=== PATIENT | female | born 1980 | race Caucasian/White ===

== ENCOUNTER 2018-09-28 23:21 | Emergency (ER) | payer OTHER | END 2018-09-29 13:48 | disposition home or self-care (01) | LOC: JER 23:21 ==

== ENCOUNTER 2018-09-29 16:02 | Inpatient (IN) | payer OTHER ==
--- NOTE | 2018-09-29 20:00 | HP ---
CIWA Score Nausea/Vomitin (vomit x 1 4pm) Muscle Tremors: 3 Anxiety: 2 Agitation: 0-Normal Activity Paroxysmal Sweats: 2 Orientation: 0-Oriented Tacttile Disturbances: 0-None Auditory Disturbances: 0-None Visual Disturbances: 2-Mild Sensitivity Headache: 5-Severe (9/10) CIWA-Ar Total Score: 16 - Admission Criteria OASAS Guidelines: Admission for Medically Managed Detox: Requires at least one of the followin. CIWA greater than 12 2. Seizures within the past 24 hours 3. Delirium tremens within the past 24 hours 4. Hallucinations within the past 24 hours 5. Acute intervention needed for co occurring medical disorder 6. Acute intervention needed for co occurring psychiatric disorder 7. Severe withdrawal that cannot be handled at a lower level of care (continued vomiting, continued diarrhea, abnormal vital signs) requiring intravenous medication and/or fluids 8. Admission ROS [facility] Chief Complaint: " alcohol withdrawal symptoms" Allergies/Adverse Reactions: Allergies Allergy/AdvReac Type Severity Reaction Status Date / Time cefaclor [From Ceclor] Allergy Verified 09/28/18 22:05 sertraline [From Zoloft] Allergy Verified 09/28/18 22:05 venlafaxine [From Effexor] Allergy Verified 09/28/18 22:05 History of Present Illness: Patient is a 38 yo female with hx of alcohol dependence is here seeking alcohol detox d/t withdrawal sx. Patient return from [facility] after evaluation for abdominal pain, s/p unwitnessed fall and alcohol intoxication. CT Scan and Spine CT and CT of abdomen and pelvis performed at [facility] Negative. Patient c/o of alcohol withdrawal symptoms, feeling shaky, vomiting and headache. Reports admitted to [facility] for eight days and discharged 09/28/18 for increased depression. Reports after she was released from [facility] psych hernandez went on a drinking binge before arriving at [facility] 09/28/18. Reports hx of alcohol blackouts, hx of alcohol seizures, last episode June 2018. PMHX: migraines, Hep C, HSV. Psych: Depression, PTSD, bipolar and borderline personality. PTSD and anxiety. Denies suicidal / homicidal ideation. Reports hx of suicide attempt x 4, last episode June 2018. Longest period of sobriety only during her three pregnancies. Exam Limitations: No Limitations - Ebola screening Have you traveled outside of the country in the last 21 days: No Have you had contact with anyone from an Ebola affected area: No - Review of Systems Constitutional: Chills, Loss of Appetite, Changes in sleep, Other (clamy hands, shaky) EENT: reports: Other (light sensitivity) Respiratory: reports: No Symptoms reported Cardiac: reports: Palpitations GI: reports: Nausea, Poor Appetite, Vomiting, Other (rectal bleed yesterday, improved today, reports at [facility] had Enlarged spleen) : reports: No Symptoms Reported Musculoskeletal: reports: Back Pain, Other (right hip pain d/t OA) Integumentary: reports: No Symptoms Reported Neuro: reports: See HPI, Headache Endocrine: reports: Increased Thirst Hematology: reports: No Symptoms Reported Psychiatric: reports: Orientated x3, Anxious Other Systems: Reviewed and Negative Patient History - Patient Medical History Hx Anemia: No Hx Asthma: No Hx Chronic Obstructive Pulmonary Disease (COPD): No Hx Cancer: No Hx Cardiac Disorders: No Hx Congestive Heart Failure: No Hx Hypertension: No Hx Hypercholesterolemia: No Hx Pacemaker: No HX Cerebrovascular Accident: No Hx Seizures: No (reports ETOH seizure with last episode June 2018) Hx Dementia: No Hx Diabetes: No Hx Gastrointestinal Disorders: No Hx Genitourinary Disorders: No Hx Sexually Transmitted Disorders: No Hx Renal Disease (ESRD): Yes (Kidney stone ) Hx Thyroid Disease: No Hx Human Immunodeficiency Virus (HIV): No Hx Hepatitis C: Yes Hx Depression: Yes Hx Suicide Attempt: Yes (reports hx of suicide attempt x 4, last episode June 2018) - Patient Surgical History Past Surgical History: Yes Other Surgical History: tubal Litigation, uterine ablation , bladder hammock, Left thumb fx, Right Anesthesia Reaction: No - PPD History Previous Implant?: No Documented Results: Positive w/o proof PPD to be Administered?: No - Reproductive History Patient is a Female of Child Bearing Age (11 -55 yrs old): Yes Last Menstrual Period: 07/01/18 Patient : No - Smoking Cessation Smoking history: Unknown if ever smoked Hx Chewing Tobacco Use: No Initiated information on smoking cessation: No - Substance & Tx. History Hx Alcohol Use: Yes Hx Substance Use: Yes Substance Use Type: Alcohol Hx Substance Use Treatment: Yes (Last Detox [facility] eight days ago ) - Substances abused Alcohol Substance route: Oral Frequency: Daily Amount used: 1/2 GALLON Age of first use: 12 Date of last use: 09/28/18 Family Disease History - Family Disease History Family Disease History: CA: Father (lung CA , melanoma ) Admission Physical Exam [facility] - Physical General Appearance: Yes: Appropriately Dressed, Mild Distress, Thin, Tremorous, Sweating, Anxious HEENTM: Yes: Hearing grossly Normal, Normal ENT Inspection, Normocephalic, JOSE J , Pharynx Normal, Tm's normal Respiratory: Yes: Chest Non-Tender, Lungs Clear, Normal Breath Sounds, No Respiratory Distress, No Accessory Muscle Use Neck: Yes: Within Normal Limits Breast: Yes: Breast Exam Deferred Cardiology: Yes: Regular Rhythm, Regular Rate Abdominal: Yes: Normal Bowel Sounds, Non Tender, Flat, Soft Genitourinary: Yes: Within Normal Limits Back: Yes: Normal Inspection Musculoskeletal: Yes: full range of Motion, Gait Steady, Pelvis Stable Extremities: Yes: Normal Capillary Refill, Normal Inspection, Normal Range of Motion Neurological: Yes: physician relations manager II-XII NML intact, Fully Oriented, Alert, Motor Strength 5/5, Depressed Affect Integumentary: Yes: Normal Color, Clammy Lymphatic: Yes: Within Normal Limits - Diagnostic (1) Alcohol dependence with withdrawal Current Visit: Yes Status: Acute Qualifiers: Complication of substance-induced condition: uncomplicated Qualified Code(s ): F10.230 - Alcohol dependence with withdrawal, uncomplicated (2) Migraine headache Current Visit: Yes Status: Acute (3) History of seizure Current Visit: Yes Status: Acute (4) Psychiatric disorder Current Visit: Yes Status: Acute Cleared for Admission [facility] - Detox or Rehab [facility] Level of Care: Medically Managed Detox Regimen/Protocol: Librium Breathalyzer - Breathalyzer Breathalyzer: 0 POC Urine test - Test device test lot number: [id number] Expiration date: 02/27/20 - Control test control: Yes - Result Urine Test Results: Negative - NO line present Urine Drug Screen - Test Device Lot number: [id number] Expiration date: 09/26/19 - Control Is test valid?: Yes - Results Drug screen NEGATIVE: No Urine drug screen results: THC-Marijuana, BZO-Benzodiazepines Inpatient Rehab Admission - Rehab Decision to Admit Inpatient rehab admission?: No
[2018-09-29] MEDS ORDERED: MELATONIN 5 MG TABLETS PO PRN (21:09)
[2018-09-29] MEDS ORDERED: MENTHOL/PHENOL 1 EACH UD MM PRN (21:09)
[2018-09-29] MEDS ORDERED: MAGNESIUM CITRATE 300 ML BOTTLE PO PRN (21:09)
[2018-09-29] MEDS ORDERED: MAGNESIUM HYDROX 2400MG/30ML ORAL SUSPENSION 30 ML CUP PO PRN (21:09)
[2018-09-29] MEDS ORDERED: BISMUTH SUBSALICYLATE 524 MG/30 ML UD PO PRN (21:09)
[2018-09-29] MEDS ORDERED: ACETAMINOPHEN 325 MG TABLET (FP) PO PRN (21:09)
[2018-09-29] MEDS ORDERED: MAG HYDROX/AL HYDROX/SIMETH 30 ML UNIT-DOSE CUP PO PRN (21:09)
[2018-09-29] MEDS ORDERED: chlordiazePOXIDE HCL 10 MG CAPSULE PO PRN (21:09)
[2018-09-29] MEDS: THIAMINE HCL 100 MG TABLET (FP) PO SCH (21:55)
[2018-09-29] MEDS: chlordiazePOXIDE HCL 25 MG CAPSULE PO SCH (21:55)
[2018-09-29] MEDS: ACYCLOVIR 400 MG TABLET PO SCH (21:56)
[2018-09-29] MEDS: ACETAMINOPHEN 325 MG TABLET (FP) PO PRN (21:58)
[2018-09-30] MEDS: DOXYCYCLINE HYCLATE 100 MG CAPSULE PO SCH ×3 (01:47→18:12)
[2018-09-30] MEDS: METHOCARBAMOL 500 MG TABLET PO PRN ×3 (03:09→22:22)
[2018-09-30] MEDS: hydrOXYzine PAMOATE 25 MG CAPSULE (FP) PO PRN ×2 (03:09→22:18)
[2018-09-30] MEDS: ACETAMINOPHEN 325 MG TABLET (FP) PO PRN (03:10)
[2018-09-30] MEDS: chlordiazePOXIDE HCL 25 MG CAPSULE PO SCH ×2 (05:48→13:27)
[2018-09-30] MEDS ORDERED: TOPIRAMATE 200 MG TABLET (FP) PO SCH (10:00)
[2018-09-30] MEDS: PRENATAL VITAMINS W/ FOLIC ACID TABLET (FP) PO SCH (10:13)
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
[2018-09-30] MEDS ORDERED: TOPIRAMATE 100 MG TABLET PO SCH (13:00)
[2018-09-30] MEDS: ACYCLOVIR 400 MG TABLET PO SCH ×2 (13:26→22:16)
--- NOTE | 2018-09-30 15:00 | PN ---
S CIWA - CIWA Score Nausea/Vomitin-No Nausea/No Vomiting Muscle Tremors: 3 Anxiety: 2 Agitation: 0-Normal Activity Paroxysmal Sweats: 3 Orientation: 0-Oriented Tacttile Disturbances: 2-Mild Itch/Numbness/Burn Auditory Disturbances: 0-None Visual Disturbances: 3-Moderate Sensitivity Headache: 3-Moderate CIWA-Ar Total Score: 16 B[facility] Progress Note (SOAP) Subjective: Tremors, H/A (Patient Reports History of Chronic Migraine H/A's), Diarrhea, Sweating. Objective: PATIENT A & O X 3, OBSERVED AMBULATING ON UNIT. IN NO ACUTE DISTRESS. 09/30/18 14:54 Vital Signs Temperature 98.3 F 09/30/18 14:17 Pulse Rate 61 09/30/18 14:17 Respiratory Rate 18 09/30/18 14:17 Blood Pressure 104/68 09/30/18 14:17 O2 Sat by Pulse Oximetry (%) ADMISSION LAB RESULTS NOTED. 09/30/18 15:02 Assessment: 09/30/18 14:58 WITHDRAWAL SYMPTOMS. Plan: CONTINUE DETOX. INCREASE DAILY PO FLUID INTAKE. REPEAT UA FOR ADMISSION ABNORMALITIES. DURING DAILY AM MEDICAL ROUNDS ASSESSMENT TODAY, PATIENT REPORTED THAT SHE TAKES TOPIRAMATE, 200 MG PO BID FOR PREVENTION OF CHRONIC MIGRAINE H/A'S. HOWEVER, VIEWING OF BOTTLE THAT PATIENT BROUGHT WITH HER AT TIME OF ADMISSION ASSESSMENT REVEALS THAT PATIENT IS CURRENTLY PRESCRIBED TOPIRAMATE, 50 MG PO BID FOR PREVENTION OF MIGRAINE H/A'S. ORDERED DOSAGE CHANGED ACCORDINGLY.
[2018-09-30] MEDS: GABAPENTIN 400 MG CAPSULE (FP) PO SCH ×2 (15:26→22:15)
[2018-09-30] MEDS: THIAMINE HCL 100 MG TABLET (FP) PO SCH (22:14)
[2018-09-30] MEDS: chlordiazePOXIDE 5 MG CAPSULE PO SCH (22:14)
[2018-09-30] MEDS: SERTRALINE HCL 25 MG TABLET (FP) PO SCH (22:15)
[2018-09-30] MEDS: TOPIRAMATE 25 MG TABLET (FP) PO SCH (22:15)
[2018-09-30] MEDS: lamoTRIgine 25 MG TABLET PO SCH (22:16)
[2018-09-30] MEDS: traZODone HCL 50 MG TABLET (FP) PO SCH (22:18)
[2018-10-01] MEDS: GABAPENTIN 400 MG CAPSULE (FP) PO SCH ×3 (05:45→22:31)
[2018-10-01] MEDS: chlordiazePOXIDE 5 MG CAPSULE PO SCH ×2 (05:45→14:10)
[2018-10-01] MEDS: ACETAMINOPHEN 325 MG TABLET (FP) PO PRN (05:47)
[2018-10-01] MEDS: DOXYCYCLINE HYCLATE 100 MG CAPSULE PO SCH ×2 (10:24→18:05)
[2018-10-01] MEDS: lamoTRIgine 25 MG TABLET PO SCH ×2 (10:24→22:31)
[2018-10-01] MEDS: PRENATAL VITAMINS W/ FOLIC ACID TABLET (FP) PO SCH (10:24)
[2018-10-01] MEDS: TOPIRAMATE 25 MG TABLET (FP) PO SCH ×2 (10:25→22:30)
[2018-10-01] MEDS: ACYCLOVIR 400 MG TABLET PO SCH ×2 (10:25→22:31)
[2018-10-01] MEDS: IBUPROFEN 400 MG TABLET (FP) PO PRN (10:28)
--- NOTE | 2018-10-01 13:43 | PN ---
S CIWA - CIWA Score Nausea/Vomitin-No Nausea/No Vomiting Muscle Tremors: None Anxiety: 1-Mildly Anxious Agitation: 0-Normal Activity Paroxysmal Sweats: 3 Orientation: 0-Oriented Tacttile Disturbances: 0-None Auditory Disturbances: 0-None Visual Disturbances: 3-Moderate Sensitivity Headache: 5-Severe CIWA-Ar Total Score: 12 S Progress Note (SOAP) Subjective: Chills, Sweating, Fatigue, H/A. Objective: PATIENT A & O X 3, OBSERVED AMBULATING ON UNIT. IN NO ACUTE DISTRESS. 10/01/18 13:42 Vital Signs Temperature 96.5 F L 10/01/18 09:19 Pulse Rate 67 10/01/18 09:19 Respiratory Rate 16 10/01/18 09:19 Blood Pressure 100/60 10/01/18 09:19 O2 Sat by Pulse Oximetry (%) Laboratory Tests 10/01/18 10/01/18 07:00 07:00 RPR Titer Nonreactive HIV 1&2 Antibody Screen Negative HIV P24 Antigen Negative ADMISSION LABS NOTED. Assessment: 10/01/18 13:43 WITHDRAWAL SYMPTOMS. UTI. Plan: CONTINUE DETOX. INCREASE DAILY PO FLUID INTAKE. RECEIVED TELEPHONE CALL FROM Lili JENKINS NP AT [facility]. PATIENT HAD BEEN EVALUATED THERE JUST PRIOR TO ADMISSION TO DETOX UNIT. MS. REPORTS THAT PATIENT HAD HAD URINE CULTURE DONE THERE AND THAT RESULT IS POSITIVE FOR STREPTOCOCCUS. PATIENT IS ALREADY PRESCRIBED DOXICYCLINE PO FOR TREATMENT OF AN "INFECTION OF HER FALLOPIAN TUBES." PER MS. JENKINS, URINE C + S INDICATES THAT STREPTOCOCCUS IS SENSITIVE TO MACROBID. AT RECOMMENDATION OF MS. JENKINS, MACROBID (MACRODANTIN IS FORM AVAILABLE FROM [facility]): 50MG PO Q6H ORDERED.
[2018-10-01] MEDS: NITROFURANTOIN MACROCRYSTAL 50 MG CAPSULE (FP) PO SCH (18:05)
[2018-10-01] MEDS ORDERED: chlordiazePOXIDE HCL 10 MG CAPSULE PO PRN (21:00)
[2018-10-01] MEDS: chlordiazePOXIDE HCL 10 MG CAPSULE PO SCH (22:31)
[2018-10-01] MEDS: traZODone HCL 50 MG TABLET (FP) PO SCH (22:31)
[2018-10-01] MEDS: THIAMINE HCL 100 MG TABLET (FP) PO SCH (22:32)
[2018-10-01] MEDS: SERTRALINE HCL 25 MG TABLET (FP) PO SCH (22:35)
[2018-10-01] MEDS: hydrOXYzine PAMOATE 25 MG CAPSULE (FP) PO PRN (22:35)
[2018-10-01] MEDS: METHOCARBAMOL 500 MG TABLET PO PRN (22:35)
[2018-10-02] MEDS: NITROFURANTOIN MACROCRYSTAL 50 MG CAPSULE (FP) PO SCH ×5 (01:15→23:32)
[2018-10-02] MEDS: GABAPENTIN 400 MG CAPSULE (FP) PO SCH ×3 (05:24→22:08)
[2018-10-02] MEDS: chlordiazePOXIDE HCL 10 MG CAPSULE PO SCH ×3 (05:24→22:12)
[2018-10-02] MEDS: PRENATAL VITAMINS W/ FOLIC ACID TABLET (FP) PO SCH (10:12)
[2018-10-02] MEDS: lamoTRIgine 25 MG TABLET PO SCH ×2 (10:12→22:08)
[2018-10-02] MEDS: ACYCLOVIR 400 MG TABLET PO SCH ×2 (10:13→22:06)
[2018-10-02] MEDS: DOXYCYCLINE HYCLATE 100 MG CAPSULE PO SCH ×2 (10:13→17:34)
[2018-10-02] MEDS: TOPIRAMATE 25 MG TABLET (FP) PO SCH ×2 (10:13→22:07)
[2018-10-02] MEDS: METHOCARBAMOL 500 MG TABLET PO PRN ×2 (17:37→23:37)
--- NOTE | 2018-10-02 17:58 | PN ---
BHS Progress Note (SOAP) Subjective: sweats shakes headache Objective: 10/02/18 17:57 A & O x 3 gait steady skin flushed Vital Signs Temperature 97.9 F 10/02/18 17:46 Pulse Rate 77 10/02/18 17:46 Respiratory Rate 18 10/02/18 17:46 Blood Pressure 100/67 10/02/18 17:46 O2 Sat by Pulse Oximetry (%) Assessment: 10/02/18 17:58 withdrawal sx Plan: continue detox for d/c in a.m
[2018-10-02] MEDS: SERTRALINE HCL 50 MG TABLET (FP) PO SCH (22:02)
[2018-10-02] MEDS: traZODone HCL 50 MG TABLET (FP) PO SCH (22:07)
[2018-10-02] MEDS: ACETAMINOPHEN 325 MG TABLET (FP) PO PRN (22:08)
[2018-10-02] MEDS: THIAMINE HCL 100 MG TABLET (FP) PO SCH (22:08)
[2018-10-02] MEDS: hydrOXYzine PAMOATE 25 MG CAPSULE (FP) PO PRN (22:09)
[2018-10-03] MEDS: GABAPENTIN 400 MG CAPSULE (FP) PO SCH ×3 (05:33→22:18)
[2018-10-03] MEDS: NITROFURANTOIN MACROCRYSTAL 50 MG CAPSULE (FP) PO SCH ×3 (05:33→17:49)
[2018-10-03] MEDS: ACYCLOVIR 400 MG TABLET PO SCH ×2 (10:05→22:18)
[2018-10-03] MEDS: PRENATAL VITAMINS W/ FOLIC ACID TABLET (FP) PO SCH (10:05)
[2018-10-03] MEDS: lamoTRIgine 25 MG TABLET PO SCH ×2 (10:06→22:18)
[2018-10-03] MEDS: TOPIRAMATE 25 MG TABLET (FP) PO SCH ×2 (10:06→22:17)
[2018-10-03] MEDS: DOXYCYCLINE HYCLATE 100 MG CAPSULE PO SCH ×2 (10:06→17:49)
--- NOTE | 2018-10-03 17:14 | PN ---
S Progress Note (SOAP) Subjective: Headache 8/10 due to migraine, chills. Patient stated she usually takes excedrin for her migraine. Patient requested to be discharge tomorrow because she wants inpatient rehab and no beds available today. Patient stated she lives in [place] and not able to leave today plus she is afraid of relapsing and would like rehab. Objective: 10/03/18 17:12 Last Vital Signs Temp Pulse Resp BP Pulse Ox 97.2 F L 77 18 122/68 10/03/18 15:52 10/03/18 15:52 10/03/18 15:52 10/03/18 15:52 Laboratory Tests 10/01/18 10/01/18 07:00 07:00 RPR Titer Nonreactive HIV 1&2 Antibody Screen Negative HIV P24 Antigen Negative Labs reviewed Assessment: 10/03/18 17:12 Withdrawal symptoms Plan: Continue detox Encouraged PO water hydration Discharge rescheduled for tomorrow, patient requesting inpatient rehab
[2018-10-03] MEDS: hydrOXYzine PAMOATE 25 MG CAPSULE (FP) PO PRN (17:48)
[2018-10-03] MEDS: ACETAMINOPHEN 325 MG TABLET (FP) PO PRN (17:50)
[2018-10-03] MEDS: SERTRALINE HCL 50 MG TABLET (FP) PO SCH (22:17)
[2018-10-03] MEDS: traZODone HCL 50 MG TABLET (FP) PO SCH (22:18)
[2018-10-03] MEDS: METHOCARBAMOL 500 MG TABLET PO PRN (22:18)
[2018-10-03] MEDS: THIAMINE HCL 100 MG TABLET (FP) PO SCH (22:18)
[2018-10-03] MEDS: IBUPROFEN 400 MG TABLET (FP) PO PRN (22:21)
[2018-10-04] MEDS: NITROFURANTOIN MACROCRYSTAL 50 MG CAPSULE (FP) PO SCH ×5 (00:11→23:41)
[2018-10-04] MEDS: GABAPENTIN 400 MG CAPSULE (FP) PO SCH ×3 (05:16→21:32)
--- NOTE | 2018-10-04 09:00 | DS ---
[facility] Detox Discharge Summary Admission Date: 09/29/18 Discharge Date: 10/04/18 - History Present History: Alcohol Dependence - Physical Exam Results Vital Signs: Vital Signs Temperature 97.9 F 10/04/18 06:00 Pulse Rate 82 10/04/18 06:00 Respiratory Rate 16 10/04/18 06:00 Blood Pressure 93/62 10/04/18 06:00 O2 Sat by Pulse Oximetry (%) - Treatment Hospital Course: Detox Protocol Followed, Detoxed Safely, Responded well, Discharged Condition Good, Rehab Referral Accepted - Medication Discharge Medications: Ambulatory Orders Acyclovir [Zovirax -] 400 mg PO BID 09/28/18 Gabapentin 400 mg PO TID 09/28/18 Lamotrigine [Lamictal] 400 mg PO DAILY 09/28/18 Topiramate [Topamax -] 400 mg PO DAILY 09/28/18 traZODone HCL [Trazodone HCl] 100 mg PO HS 09/28/18 Doxycycline Hyclate [Vibratab -] 100 mg PO BID #28 tablet 09/29/18 Lamotrigine [Lamictal] 25 mg PO BID 09/30/18 Sertraline HCl [Zoloft -] 75 mg PO HS 09/30/18 - Diagnosis (1) Alcohol dependence with withdrawal Current Visit: Yes Status: Chronic Qualifiers: Complication of substance-induced condition: uncomplicated Qualified Code(s ): F10.230 - Alcohol dependence with withdrawal, uncomplicated (2) History of seizure Current Visit: Yes Status: Acute (3) Migraine headache Current Visit: No Status: Resolved (4) Psychiatric disorder Current Visit: Yes Status: Acute (5) Bipolar II disorder Current Visit: Yes Status: Chronic (6) Alcohol dependence with intoxication Current Visit: No Status: Acute Qualifiers: Complication of substance-induced condition: uncomplicated Qualified Code(s ): F10.220 - Alcohol dependence with intoxication, uncomplicated (7) Urinary tract infection Current Visit: Yes Status: Acute Qualifiers: Indwelling urinary catheter type: unspecified (8) Vaginal discharge Current Visit: Yes Status: Acute - AMA Did Patient Leave Against Medical Advice: No (referred to inpatient rehab )
[2018-10-04] MEDS: ACYCLOVIR 400 MG TABLET PO SCH ×2 (10:32→21:32)
[2018-10-04] MEDS: TOPIRAMATE 25 MG TABLET (FP) PO SCH ×2 (10:32→21:32)
[2018-10-04] MEDS: PRENATAL VITAMINS W/ FOLIC ACID TABLET (FP) PO SCH (10:32)
[2018-10-04] MEDS: lamoTRIgine 25 MG TABLET PO SCH ×2 (10:32→21:31)
[2018-10-04] MEDS: DOXYCYCLINE HYCLATE 100 MG CAPSULE PO SCH (10:47)
[2018-10-04] MEDS ORDERED: DOXYCYCLINE HYCLATE 100 MG TABLET PO SCH (16:39)
[2018-10-04] MEDS: DOXYCYCLINE HYCLATE 100 MG TABLET PO SCH (17:06)
[2018-10-04] MEDS: traZODone HCL 50 MG TABLET (FP) PO SCH (21:31)
[2018-10-04] MEDS: METHOCARBAMOL 500 MG TABLET PO PRN (21:33)
[2018-10-04] MEDS: THIAMINE HCL 100 MG TABLET (FP) PO SCH (21:34)
[2018-10-04] MEDS: SERTRALINE HCL 50 MG TABLET (FP) PO SCH (21:34)
[2018-10-04] MEDS: hydrOXYzine PAMOATE 25 MG CAPSULE (FP) PO PRN (22:57)
[2018-10-05] MEDS: GABAPENTIN 400 MG CAPSULE (FP) PO SCH ×3 (06:03→21:47)
[2018-10-05] MEDS: NITROFURANTOIN MACROCRYSTAL 50 MG CAPSULE (FP) PO SCH ×4 (06:03→23:09)
[2018-10-05] MEDS: SERTRALINE HCL 50 MG TABLET (FP) PO SCH (09:40)
[2018-10-05] MEDS: DOXYCYCLINE HYCLATE 100 MG TABLET PO SCH ×2 (09:57→17:21)
[2018-10-05] MEDS: TOPIRAMATE 25 MG TABLET (FP) PO SCH ×2 (09:57→21:47)
[2018-10-05] MEDS: PRENATAL VITAMINS W/ FOLIC ACID TABLET (FP) PO SCH (09:58)
[2018-10-05] MEDS: ACYCLOVIR 400 MG TABLET PO SCH ×2 (09:58→21:48)
[2018-10-05] MEDS: lamoTRIgine 25 MG TABLET PO SCH ×2 (09:58→21:48)
[2018-10-05] MEDS: METHOCARBAMOL 500 MG TABLET PO PRN (16:26)
[2018-10-05] MEDS: THIAMINE HCL 100 MG TABLET (FP) PO SCH (21:46)
[2018-10-05] MEDS: traZODone HCL 50 MG TABLET (FP) PO SCH (21:47)
[2018-10-05] MEDS: hydrOXYzine PAMOATE 25 MG CAPSULE (FP) PO PRN (21:49)
[2018-10-05] MEDS ORDERED: METHOCARBAMOL 500 MG TABLET PO ONE (23:00)
[2018-10-06] MEDS: NITROFURANTOIN MACROCRYSTAL 50 MG CAPSULE (FP) PO SCH ×4 (06:07→23:13)
[2018-10-06] MEDS: ACETAMINOPHEN 325 MG TABLET (FP) PO PRN ×2 (06:07→16:41)
[2018-10-06] MEDS: GABAPENTIN 400 MG CAPSULE (FP) PO SCH ×3 (06:07→21:32)
[2018-10-06] MEDS ORDERED: PT OWN MED DRAWER 7, Y5N ONE (09:13)
[2018-10-06] MEDS: ACYCLOVIR 400 MG TABLET PO SCH (10:14)
[2018-10-06] MEDS: PRENATAL VITAMINS W/ FOLIC ACID TABLET (FP) PO SCH (10:14)
[2018-10-06] MEDS: DOXYCYCLINE HYCLATE 100 MG TABLET PO SCH ×2 (10:14→17:29)
[2018-10-06] MEDS: TOPIRAMATE 25 MG TABLET (FP) PO SCH ×2 (10:14→21:31)
[2018-10-06] MEDS: lamoTRIgine 25 MG TABLET PO SCH ×2 (10:14→21:31)
--- NOTE | 2018-10-06 12:30 | EKG ---
Test Reason : Blood Pressure : / mmHG Vent. Rate : 058 BPM Atrial Rate : 058 BPM P-R Int : 126 ms QRS Dur : 078 ms QT Int : 410 ms P-R-T Axes : 030 071 050 degrees QTc Int : 402 ms SINUS BRADYCARDIA OTHERWISE NORMAL ECG NO PREVIOUS ECGS AVAILABLE Confirmed by KERI ZIMMERMAN, RANJITH ([id number]) on 10/06/2018 12:30:00 PM Referred By: GRADY FIGUEROA Confirmed By:RANJITH SAAVEDRA MD
[2018-10-06] MEDS: THIAMINE HCL 100 MG TABLET (FP) PO SCH (21:31)
[2018-10-06] MEDS: SERTRALINE HCL 50 MG TABLET (FP) PO SCH (21:31)
[2018-10-06] MEDS: traZODone HCL 50 MG TABLET (FP) PO SCH (21:32)
[2018-10-06] MEDS: IBUPROFEN 400 MG TABLET (FP) PO PRN (22:37)
[2018-10-06] MEDS: METHOCARBAMOL 500 MG TABLET PO SCH (22:37)
[2018-10-06] MEDS: hydrOXYzine PAMOATE 25 MG CAPSULE (FP) PO PRN (22:38)
[2018-10-07] MEDS: GABAPENTIN 400 MG CAPSULE (FP) PO SCH ×3 (06:21→21:27)
[2018-10-07] MEDS: NITROFURANTOIN MACROCRYSTAL 50 MG CAPSULE (FP) PO SCH ×4 (06:21→23:15)
[2018-10-07] MEDS ORDERED: METHOCARBAMOL 500 MG TABLET PO SCH (10:00)
[2018-10-07] MEDS: lamoTRIgine 25 MG TABLET PO SCH ×2 (10:18→21:27)
[2018-10-07] MEDS: TOPIRAMATE 25 MG TABLET (FP) PO SCH ×2 (10:18→21:26)
[2018-10-07] MEDS: PRENATAL VITAMINS W/ FOLIC ACID TABLET (FP) PO SCH (10:18)
[2018-10-07] MEDS: valACYclovir HCL 500 MG TABLET (FP) PO SCH (10:18)
[2018-10-07] MEDS: ACETAMINOPHEN 325 MG TABLET (FP) PO PRN (10:19)
[2018-10-07] MEDS: DOXYCYCLINE HYCLATE 100 MG TABLET PO SCH ×2 (10:19→17:42)
[2018-10-07] MEDS: SERTRALINE HCL 50 MG TABLET (FP) PO SCH (21:26)
[2018-10-07] MEDS: traZODone HCL 50 MG TABLET (FP) PO SCH (21:26)
[2018-10-07] MEDS: THIAMINE HCL 100 MG TABLET (FP) PO SCH (21:28)
[2018-10-07] MEDS: hydrOXYzine PAMOATE 25 MG CAPSULE (FP) PO PRN (23:16)
[2018-10-07] MEDS: METHOCARBAMOL 500 MG TABLET PO SCH (23:16)
[2018-10-08] MEDS: NITROFURANTOIN MACROCRYSTAL 50 MG CAPSULE (FP) PO SCH ×2 (06:36→12:59)
[2018-10-08] MEDS: GABAPENTIN 400 MG CAPSULE (FP) PO SCH ×3 (06:36→21:29)
[2018-10-08] MEDS: DOXYCYCLINE HYCLATE 100 MG TABLET PO SCH ×2 (09:51→17:55)
[2018-10-08] MEDS: TOPIRAMATE 25 MG TABLET (FP) PO SCH ×2 (09:51→21:29)
[2018-10-08] MEDS: lamoTRIgine 25 MG TABLET PO SCH ×2 (09:51→21:29)
[2018-10-08] MEDS: valACYclovir HCL 500 MG TABLET (FP) PO SCH (09:51)
[2018-10-08] MEDS: PRENATAL VITAMINS W/ FOLIC ACID TABLET (FP) PO SCH (09:51)
[2018-10-08] MEDS: hydrOXYzine PAMOATE 25 MG CAPSULE (FP) PO PRN (09:52)
[2018-10-08] MEDS: THIAMINE HCL 100 MG TABLET (FP) PO SCH (21:28)
[2018-10-08] MEDS: traZODone HCL 50 MG TABLET (FP) PO SCH (21:29)
[2018-10-08] MEDS: SERTRALINE HCL 50 MG TABLET (FP) PO SCH (21:30)
[2018-10-08] MEDS: METHOCARBAMOL 500 MG TABLET PO SCH (21:30)
[2018-10-09] MEDS: GABAPENTIN 400 MG CAPSULE (FP) PO SCH ×3 (06:03→21:54)
[2018-10-09] MEDS: lamoTRIgine 25 MG TABLET PO SCH ×2 (09:40→21:55)
[2018-10-09] MEDS: TOPIRAMATE 25 MG TABLET (FP) PO SCH ×2 (09:40→21:54)
[2018-10-09] MEDS: DOXYCYCLINE HYCLATE 100 MG TABLET PO SCH ×2 (09:40→17:31)
[2018-10-09] MEDS: PRENATAL VITAMINS W/ FOLIC ACID TABLET (FP) PO SCH (09:40)
[2018-10-09] MEDS: valACYclovir HCL 500 MG TABLET (FP) PO SCH (09:40)
[2018-10-09] MEDS: THIAMINE HCL 100 MG TABLET (FP) PO SCH (21:53)
[2018-10-09] MEDS: traZODone HCL 50 MG TABLET (FP) PO SCH (21:54)
[2018-10-09] MEDS: SERTRALINE HCL 50 MG TABLET (FP) PO SCH (21:55)
[2018-10-09] MEDS: METHOCARBAMOL 500 MG TABLET PO SCH (21:55)
[2018-10-09] MEDS: hydrOXYzine PAMOATE 25 MG CAPSULE (FP) PO PRN (21:55)
[2018-10-10] MEDS: GABAPENTIN 400 MG CAPSULE (FP) PO SCH ×3 (06:01→21:20)
[2018-10-10] MEDS: TOPIRAMATE 25 MG TABLET (FP) PO SCH ×2 (09:37→21:20)
[2018-10-10] MEDS: lamoTRIgine 25 MG TABLET PO SCH ×2 (09:37→22:10)
[2018-10-10] MEDS: DOXYCYCLINE HYCLATE 100 MG TABLET PO SCH ×2 (09:37→17:28)
[2018-10-10] MEDS: PRENATAL VITAMINS W/ FOLIC ACID TABLET (FP) PO SCH (09:37)
[2018-10-10] MEDS: valACYclovir HCL 500 MG TABLET (FP) PO SCH (09:37)
[2018-10-10] MEDS: THIAMINE HCL 100 MG TABLET (FP) PO SCH (21:19)
[2018-10-10] MEDS: traZODone HCL 50 MG TABLET (FP) PO SCH (21:19)
[2018-10-10] MEDS: ACETAMINOPHEN 325 MG TABLET (FP) PO PRN (21:20)
[2018-10-10] MEDS: hydrOXYzine PAMOATE 25 MG CAPSULE (FP) PO PRN (21:20)
[2018-10-10] MEDS: SERTRALINE HCL 50 MG TABLET (FP) PO SCH (21:21)
[2018-10-10] MEDS: METHOCARBAMOL 500 MG TABLET PO SCH (22:10)
[2018-10-11] MEDS: GABAPENTIN 400 MG CAPSULE (FP) PO SCH ×3 (06:14→21:14)
[2018-10-11] MEDS: lamoTRIgine 25 MG TABLET PO SCH ×2 (09:45→21:13)
[2018-10-11] MEDS: PRENATAL VITAMINS W/ FOLIC ACID TABLET (FP) PO SCH (09:45)
[2018-10-11] MEDS: DOXYCYCLINE HYCLATE 100 MG TABLET PO SCH ×2 (09:46→18:15)
[2018-10-11] MEDS: valACYclovir HCL 500 MG TABLET (FP) PO SCH (09:46)
[2018-10-11] MEDS: TOPIRAMATE 25 MG TABLET (FP) PO SCH ×2 (11:00→21:13)
--- NOTE | 2018-10-11 12:34 | PN ---
[facility] Progress Note Note: PATIENT C/O SWELLING TO FINGERS AND FEET. DENIES COUGH, SOB AND CHEST PAIN. Laboratory Tests 10/01/18 10/01/18 07:00 07:00 RPR Titer Nonreactive HIV 1&2 Antibody Screen Negative HIV P24 Antigen Negative Vital Signs Temperature 98.5 F 10/11/18 07:26 Pulse Rate 72 10/11/18 07:26 Respiratory Rate 18 10/11/18 07:26 Blood Pressure 95/62 10/11/18 07:26 O2 Sat by Pulse Oximetry (%) PE: ALERT AND ORIENTED X 3 SKIN WARM AND DRY +PERRLA, EOMS INTACT EXT FULL ROM, +1 PEDAL EDEMA AND SWELLING OF FINGERS AMB AD LUBA A/P: EDEMA WILL ORDER HCTZ 25MG DAILY X 3 DAYS LEG ELEVATION ENCOURAGED CONTINUE TO MONITOR CLINICALLY
[2018-10-11] MEDS: HYDROCHLOROTHIAZIDE 25 MG TABLET (FP) PO SCH (12:38)
[2018-10-11] MEDS: THIAMINE HCL 100 MG TABLET (FP) PO SCH (21:12)
[2018-10-11] MEDS: ACETAMINOPHEN 325 MG TABLET (FP) PO PRN (21:13)
[2018-10-11] MEDS: METHOCARBAMOL 500 MG TABLET PO SCH (21:13)
[2018-10-11] MEDS: SERTRALINE HCL 50 MG TABLET (FP) PO SCH (21:14)
[2018-10-11] MEDS: hydrOXYzine PAMOATE 25 MG CAPSULE (FP) PO PRN (21:48)
[2018-10-11] MEDS: traZODone HCL 50 MG TABLET (FP) PO SCH (21:54)
[2018-10-12] MEDS: GABAPENTIN 400 MG CAPSULE (FP) PO SCH ×3 (06:24→21:17)
[2018-10-12] MEDS: lamoTRIgine 25 MG TABLET PO SCH ×2 (09:40→21:17)
[2018-10-12] MEDS: TOPIRAMATE 25 MG TABLET (FP) PO SCH ×2 (09:40→21:17)
[2018-10-12] MEDS: HYDROCHLOROTHIAZIDE 25 MG TABLET (FP) PO SCH (09:40)
[2018-10-12] MEDS: PRENATAL VITAMINS W/ FOLIC ACID TABLET (FP) PO SCH (09:40)
[2018-10-12] MEDS: valACYclovir HCL 500 MG TABLET (FP) PO SCH (09:40)
[2018-10-12] MEDS: DOXYCYCLINE HYCLATE 100 MG TABLET PO SCH ×2 (09:41→17:35)
[2018-10-12] MEDS: ACETAMINOPHEN 325 MG TABLET (FP) PO PRN (14:31)
[2018-10-12] MEDS: IBUPROFEN 400 MG TABLET (FP) PO PRN (18:52)
[2018-10-12] MEDS: SERTRALINE HCL 50 MG TABLET (FP) PO SCH (21:17)
[2018-10-12] MEDS: traZODone HCL 50 MG TABLET (FP) PO SCH (21:17)
[2018-10-12] MEDS: THIAMINE HCL 100 MG TABLET (FP) PO SCH (21:17)
[2018-10-12] MEDS: hydrOXYzine PAMOATE 25 MG CAPSULE (FP) PO PRN (21:48)
[2018-10-12] MEDS: METHOCARBAMOL 500 MG TABLET PO SCH (21:48)
[2018-10-13] MEDS: GABAPENTIN 400 MG CAPSULE (FP) PO SCH ×3 (06:03→21:19)
[2018-10-13] MEDS: lamoTRIgine 25 MG TABLET PO SCH ×2 (10:20→21:18)
[2018-10-13] MEDS: PRENATAL VITAMINS W/ FOLIC ACID TABLET (FP) PO SCH (10:20)
[2018-10-13] MEDS: HYDROCHLOROTHIAZIDE 25 MG TABLET (FP) PO SCH (10:21)
[2018-10-13] MEDS: valACYclovir HCL 500 MG TABLET (FP) PO SCH (10:21)
[2018-10-13] MEDS: TOPIRAMATE 25 MG TABLET (FP) PO SCH ×2 (10:21→21:19)
[2018-10-13] MEDS: DOXYCYCLINE HYCLATE 100 MG TABLET PO SCH ×2 (10:21→17:42)
--- NOTE | 2018-10-13 13:18 | PN ---
S Progress Note (SOAP) Subjective: Patient to be discharged tomorrow. Objective: A+O x3, no neurological deficits, skin clear, lungs clear, heart rate regular, abd soft, non-tender, non-distended. Medically stable for discharge. 10/13/18 13:16 Laboratory Tests 10/01/18 10/01/18 07:00 07:00 RPR Titer Nonreactive HIV 1&2 Antibody Screen Negative HIV P24 Antigen Negative 10/13/18 13:20 Vital Signs (72 hours) 10/11/18 10/11/18 10/11/18 00:30 03:30 07:26 Temperature 98.5 F Pulse Rate 72 Respiratory 16 16 18 Rate Blood Pressure 95/62 10/11/18 10/12/18 10/12/18 20:43 03:30 07:08 Temperature 98 F Pulse Rate 73 79 Respiratory 18 18 18 Rate Blood Pressure 115/69 104/67 10/12/18 10/12/18 10/13/18 09:30 21:08 00:30 Temperature Pulse Rate 79 64 Respiratory 18 16 20 Rate Blood Pressure 98/61 114/71 10/13/18 10/13/18 10/13/18 03:30 06:59 09:30 Temperature 97.7 F Pulse Rate 79 82 Respiratory 20 18 18 Rate Blood Pressure 94/60 96/60 Assessment: Diagnoses: ETOH Dependence, chronic 10/13/18 13:17 Plan: Client will return to [place] to live with mother and arrange for aftercare and primary care. Medications transmitted to [facility].
[2018-10-13] MEDS: IBUPROFEN 400 MG TABLET (FP) PO PRN (13:46)
[2018-10-13] MEDS: THIAMINE HCL 100 MG TABLET (FP) PO SCH (21:18)
[2018-10-13] MEDS: SERTRALINE HCL 50 MG TABLET (FP) PO SCH (21:19)
[2018-10-13] MEDS: hydrOXYzine PAMOATE 25 MG CAPSULE (FP) PO PRN (23:20)
[2018-10-13] MEDS: METHOCARBAMOL 500 MG TABLET PO SCH (23:21)
[2018-10-13] MEDS: traZODone HCL 50 MG TABLET (FP) PO SCH (23:21)
[2018-10-14] MEDS: GABAPENTIN 400 MG CAPSULE (FP) PO SCH (06:15)
[2018-10-14 07:17] VITALS: BP 116/74; PULSE 73; TEMP 98
[2018-10-14] MEDS: lamoTRIgine 25 MG TABLET PO SCH (09:21)
[2018-10-14] MEDS: valACYclovir HCL 500 MG TABLET (FP) PO SCH (09:22)
[2018-10-14] MEDS: PRENATAL VITAMINS W/ FOLIC ACID TABLET (FP) PO SCH (09:22)
[2018-10-14] MEDS: HYDROCHLOROTHIAZIDE 25 MG TABLET (FP) PO SCH (09:22)
[2018-10-14] MEDS: TOPIRAMATE 25 MG TABLET (FP) PO SCH (09:22)
[2018-10-14] MEDS: DOXYCYCLINE HYCLATE 100 MG TABLET PO SCH (09:22)
== END 2018-10-14 09:30 | disposition home or self-care (01) | DRG 895 ==
LOC: YASAS 16:02 → Y3N 21:06 → Y6N 10-01 19:04 → Y3W 10-04 14:54
PROVIDERS: ADMIT Surgery; ATTEND Neuromusculoskeletal Medicine & OMM
PROC: HZ2ZZZZ Detoxification Services for Substance Abuse Treatment (ICD-10-PCS; principal; 2018-09-29)
PROC: HZ42ZZZ Group Counseling for Substance Abuse Treatment, Cognitive-Behavioral (ICD-10-PCS; 2018-10-04)
DX: F10.230 Alcohol dependence with withdrawal, uncomplicated (principal); F31.81 Bipolar II disorder; N39.0 Urinary tract infection, site not specified; F10.220 Alcohol dependence with intoxication, uncomplicated; F99 Mental disorder, not otherwise specified; G43.909 Migraine, unspecified, not intractable, without status migrainosus; G40.909 Epilepsy, unspecified, not intractable, without status epilepticus; N89.8 Other specified noninflammatory disorders of vagina; Z87.442 Personal history of urinary calculi; Z88.8 Allergy status to other drugs, medicaments and biological substances; Z91.5 Personal history of self-harm; Z59.0 Homelessness
CPT/HCPCS: 36415; 70450-TC; 70486-TC; 71046-TC-FY; 72125-TC; 74177-TC; 76856-TC; 80053; 80307; 81003; 82272; 84703; 85025; 86593; 87086; 87186; 87389; 87491; 87591; 93005; 93010; 99281-25; J7030